=== PATIENT | female | born 1990 | race African-American/Black ===

== ENCOUNTER 2018-09-17 08:59 | Emergency (ER) | payer OTHER ==
[~2018-09-17] VITALS: Ht 165.1 cm; Wt 81.0 kg
[2018-09-17] MEDS ORDERED: ONDANSETRON HCL 4MG/2ML INJ IV STA (10:15)
[2018-09-17] MEDS ORDERED: SODIUM CHLORIDE 0.9% 1,000 ML IV ONE (10:15)
[2018-09-17] MEDS ORDERED: FAMOTIDINE 20MG/2ML VIAL IV STA (10:15)
[2018-09-17] MEDS ORDERED: MAGNESIUM/ALUMINUM HYDROXIDE/SIMETHICONE 30ML UDC PO STA (10:15)
[2018-09-17 11:11] LABS: HEMATOCRIT. 38.1 % (36.0-48.0); HEMOGLOBIN. 12.2 g/dL (12.0-16.0); MEAN CORPUSCULAR HEMOGLOBIN 26.6 pg (28.0-32.0); MEAN CORPUSCULAR VOLUME 83.5 fL (81.0-99.0); MEAN PLATELET VOLUME 8.9 fl (7.4-10.4); PLATELET 324 x1000/uL (130-400); RED BLOOD CELL COUNT 4.57 mill/uL (4.2-5.4)
[2018-09-17 11:18] LABS: PROTHROMBIN TIME 10.3 sec (9.6-11.0)
[2018-09-17 11:22] LABS: CHLORIDE 105 mEq/L (98-107)
[2018-09-17 11:26] LABS: PLATELET ESTIMATE NORMAL
[2018-09-17] MEDS ORDERED: DIPHENHYDRAMINE 50MG/ML VIAL IV ONE (12:00)
[2018-09-17 12:45] LABS: CLARITY URINE CLEAR (CLEAR); COLOR URINE YELLOW (YELLOW); KETONES URINE 1+ (NEGATIVE); LEUKOCYTE ESTERASE URINE NEGATIVE (NEGATIVE); NITRITE URINE NEGATIVE (NEGATIVE); OCCULT BLOOD URINE NEGATIVE (NEGATIVE); PH URINE 5.5 (4.5-8.0); PROTEIN URINE NEGATIVE (NEGATIVE); UROBILINOGEN URINE 0.2 E.U./dL (0.2-1.0)
[2018-09-17 14:29] VITALS: BP 134/94
== END 2018-09-17 14:32 | disposition home or self-care (01) ==
LOC: ER 08:59
DX: R11.2 Nausea with vomiting, unspecified (principal); R19.7 Diarrhea, unspecified; E11.65 Type 2 diabetes mellitus with hyperglycemia; R21 Rash and other nonspecific skin eruption; D72.829 Elevated white blood cell count, unspecified
CPT/HCPCS: 36415; 80053; 81003; 83690; 85025; 85610; 96361; 96374; 96375; 99283; J1200; J2405; J3490; J7030; Z7610

== ENCOUNTER 2019-02-14 21:26 | Emergency (ER) | payer MEDICAID, OTHER ==
[~2019-02-14] VITALS: Ht 160 cm; Wt 73.0 kg
[2019-02-14] MEDS ORDERED: SODIUM CHLORIDE 0.9% 1000ML BAG (SEPSIS BOLUS) IV ONE (22:30)
[2019-02-14] MEDS ORDERED: LEVOFLOXACIN 750MG PREMIX 150 ML IV ONE (22:30)
[2019-02-14 23:21] LABS: HEMATOCRIT. 34.2 % (36.0-48.0); HEMOGLOBIN. 11.2 g/dL (12.0-16.0); MEAN CORPUSCULAR HEMOGLOBIN 27.1 pg (28.0-32.0); MEAN CORPUSCULAR VOLUME 82.6 fL (81.0-99.0); MEAN PLATELET VOLUME 8.4 fl (7.4-10.4); PLATELET 254 x1000/uL (130-400); RED BLOOD CELL COUNT 4.15 mill/uL (4.2-5.4); RED CELL DISTRIBUTION WIDTH 15.5 % (11.6-14.6)
[2019-02-14 23:27] LABS: CHLORIDE 102 mEq/L (98-107)
[2019-02-14 23:53] LABS: CLARITY URINE CLOUDY (CLEAR); COLOR URINE YELLOW (YELLOW); KETONES URINE TRACE (NEGATIVE); LEUKOCYTE ESTERASE URINE 2+ (NEGATIVE); NITRITE URINE POSITIVE (NEGATIVE); OCCULT BLOOD URINE 1+ (NEGATIVE); PH URINE 5.5 (4.5-8.0); PROTEIN URINE 2+ (NEGATIVE); SPECIFIC GRAVITY URINE 1.024 (1.005-1.030); UROBILINOGEN URINE 0.2 E.U./dL (0.2-1.0)
[2019-02-15 04:14] VITALS: BP 118/75
[2019-02-15 05:19] LABS: PLATELET ESTIMATE NORMAL
== END 2019-02-15 04:21 | disposition short-term general hospital (02) ==
LOC: ER 21:26
DX: R65.21 Severe sepsis with septic shock (principal); N39.0 Urinary tract infection, site not specified; J11.1 Influenza due to unidentified influenza virus with other respiratory manifestations; I95.9 Hypotension, unspecified; E11.9 Type 2 diabetes mellitus without complications
CPT/HCPCS: 36415; 71045; 80053; 81003; 81025; 82962; 83605; 84145; 84484; 85025; 87040; 87077; 87086; 87186; 87804; 93005; 96365; 96366; 99291; J1956; J7030; 84703

== ENCOUNTER 2023-10-27 23:28 | Emergency (ER) | payer MEDICAID, OTHER ==
[~2023-10-27] VITALS: Ht 160 cm; Wt 66.0 kg
[2023-10-27 23:31] VITALS: O2SAT 97
[2023-10-28 00:03] LABS: HEMOGLOBIN. 10.4 g/dL (12.0-16.0); MEAN CORPUSCULAR HGB CONC 31.6 g/dL (31.0-37.0); MEAN CORPUSCULAR VOLUME 82.3 fL (81.0-99.0); MEAN PLATELET VOLUME 7.9 fl (7.4-10.4); PLATELET 330 x1000/uL (130-400); RED BLOOD CELL COUNT 4.01 mill/uL (4.2-5.4); RED CELL DISTRIBUTION WIDTH 16.9 % (11.6-14.6); WHITE BLOOD COUNT 6.5 x1000/uL (4.5-11.0)
[2023-10-28 00:07] LABS: CHLORIDE 99 mEq/L (98-107); DIFFERENTIAL COMMENT 1; POTASSIUM 3.5 mEq/L (3.5-5.1); SODIUM 133 mEq/L (136-145)
[2023-10-28 00:08] LABS: CARBON DIOXIDE 24 mEq/L (21-32)
[2023-10-28 00:11] LABS: PROTHROMBIN TIME 10.7 sec (9.6-11.0)
[2023-10-28 00:13] LABS: GLUCOSE 373 mg/dL (70-105); UREA NITROGEN BLOOD 14 mg/dL (9-23)
[2023-10-28 00:15] LABS: ALANINE AMINOTRANSFERASE 17 IU/L (10-49); ALBUMIN 3.7 g/dL (3.2-4.8); ASPARTATE AMINOTRANSFERASE 23 IU/L (<34)
[2023-10-28 00:16] LABS: BILIRUBIN TOTAL 0.3 mg/dL (0.1-1.0); PROTEIN TOTAL 7.2 g/dL (6.0-8.3)
[2023-10-28 00:22] LABS: BILIRUBIN DIRECT < 0.1 mg/dL (<=3.0); ETHANOL BLOOD < 10 mg/dL (<10)
[2023-10-28 00:23] LABS: HCG SCREEN NEGATIVE
[2023-10-28] MEDS: SODIUM CHLORIDE 0.9% 1000ML BAG (SEPSIS BOLUS) IV ONE (00:23)
[2023-10-28] MEDS: ACETAMINOPHEN 1000MG/100ML 100 ML IV ONE (00:23)
[2023-10-28 03:39] LABS: PLATELET ESTIMATE NORMAL
[2023-10-28 05:06] LABS: CLARITY URINE CLEAR (CLEAR); COLOR URINE YELLOW (YELLOW); GLUCOSE URINE 3+ (NEGATIVE); KETONES URINE 2+ (NEGATIVE); LEUKOCYTE ESTERASE URINE NEGATIVE (NEGATIVE); NITRITE URINE NEGATIVE (NEGATIVE); OCCULT BLOOD URINE 1+ (NEGATIVE); PROTEIN URINE 4+ (NEGATIVE); SPECIFIC GRAVITY URINE 1.027 (1.005-1.030); UROBILINOGEN URINE 0.2 E.U./dL (0.2-1.0)
[2023-10-28] MEDS: INSULIN REGULAR (HUMULIN R) 1000UNITS/10ML VIAL IV NR (05:06)
[2023-10-28] MEDS ORDERED: ALBU6.7H15 INH (05:12)
[2023-10-28] MEDS ORDERED: IBUP-2029 MT (05:12)
[2023-10-28 05:14] VITALS: BP 145/66; PULSE 78; RESP 19; TEMP 36.55848; O2SAT 100
[2023-10-28 06:27] LABS: SQUAMOUS EPITHELIAL CELL URINE FEW /lpf (RARE/1+)
[2023-10-28 06:28] LABS: RBC URINE 0-2 /hpf (0-2); WBC URINE 0-2 /hpf (0-2)
[2023-10-28 06:29] LABS: BACTERIA URINE NONE SEEN
== END 2023-10-28 05:12 | disposition home or self-care (01) ==
LOC: ER 23:28
DX: U07.1 COVID-19 (principal); E10.65 Type 1 diabetes mellitus with hyperglycemia
CPT/HCPCS: 80076; 80048; 80320; 84703; 83605; 83690; 85025; 85610; 87040; 36415; 84145; 71045; 93005; 99285; 81003; 87086; 87804 ×2; 96365; 87426; J7030; G0480; J0131

== ENCOUNTER 2024-10-12 12:10 | Emergency (ER) | payer MEDICAID, OTHER ==
[~2024-10-12] VITALS: Ht 167.6 cm; Wt 73.0 kg
[~2024-10-12 12:10] MED LIST: ALBU6.7H15 INH; IBUP-2029 MT
[2024-10-12 12:13] VITALS: O2SAT 96
[2024-10-12] MEDS: IBUPROFEN 600MG TABLET PO ONE (12:52)
[2024-10-12] MEDS: MORPHINE SULFATE 4 MG/ML INJ (FOR IV/IM USE) IM ONE (13:26)
[2024-10-12 15:31] LABS: HEMATOCRIT. 24.4 % (36.0-48.0); HEMOGLOBIN. 7.9 g/dL (12.0-16.0); MEAN PLATELET VOLUME 7.6 fl (7.4-10.4); PLATELET 286 x1000/uL (130-400); RED BLOOD CELL COUNT 3.06 mill/uL (4.2-5.4); RED CELL DISTRIBUTION WIDTH 17.7 % (11.6-14.6)
[2024-10-12 15:39] LABS: HCG SCREEN POSITIVE
[2024-10-12 15:44] LABS: UREA NITROGEN BLOOD 18 mg/dL (9-23)
[2024-10-12 15:45] LABS: ASPARTATE AMINOTRANSFERASE 22 IU/L (<34)
[2024-10-12 15:46] LABS: BILIRUBIN DIRECT < 0.1 mg/dL (<=3.0); BILIRUBIN TOTAL 0.3 mg/dL (0.1-1.0); INR 1.0; PROTEIN TOTAL 6.0 g/dL (6.0-8.3)
[2024-10-12 15:48] LABS: CREATININE 1.4 mg/dL (0.6-1.0)
[2024-10-12] MEDS: POTASSIUM CHLORIDE 20MEQ TABLET SR PO NR (16:26)
[2024-10-12] MEDS: ONDANSETRON 4MG ODT PO ONE (16:43)
[2024-10-12] MEDS: ACETAMINOPHEN 325MG TABLET PO ONE (16:43)
[2024-10-12] MEDS: LABETALOL 5MG/ML 4ML INJ IV ONE (16:56)
[2024-10-12 17:36] LABS: EOSINOPHILS % MANUAL 3.0 % (0.0-5.0); LYMPHOCYTES % MANUAL 9.0 % (20.0-60.0); MONOCYTES % MANUAL 6.0 % (2.0-8.0); NEUTROPHILS % MANUAL 82.0 % (45.0-75.0); PLATELET ESTIMATE NORMAL
[2024-10-12 19:25] LABS: PLATELET 284 x1000/uL (130-400); RED BLOOD CELL COUNT 2.99 mill/uL (4.2-5.4); RED CELL DISTRIBUTION WIDTH 17.8 % (11.6-14.6)
[2024-10-12] MEDS ORDERED: MORPHINE SULFATE 2 MG/ML INJ (NOT FOR IM USE) IV ONE (19:45)
[2024-10-12] MEDS: KETOROLAC 15MG/ML VIAL IV ONE (21:22)
[2024-10-12] MEDS: IBUPROFEN 600MG TABLET PO NR (21:28)
[2024-10-12] MEDS: CLONIDINE 0.1MG TABLET PO NR (21:30)
[2024-10-12] MEDS: MORPHINE SULFATE 2 MG/ML INJ (NOT FOR IM USE) IV NR (21:30)
[2024-10-12 23:46] VITALS: BP 162/83; PULSE 90; RESP 22; TEMP 36.9; O2SAT 97
== END 2024-10-13 00:05 | disposition short-term general hospital (02) ==
LOC: ER 12:10 → CMPBEDREQ 10-14 08:30
DX: O03.9 Complete or unspecified spontaneous abortion without complication (principal); D50.9 Iron deficiency anemia, unspecified; I10 Essential (primary) hypertension; O24.119 Pre-existing type 2 diabetes mellitus, in pregnancy, unspecified trimester; Z79.899 Other long term (current) drug therapy
CPT/HCPCS: 80076; 80048; 84703; 85027; 85025; 85610; 85730; 86850; 86900; 86901; 36415; 76801; 76817; 96372; 96374; 96375; 99291; J1885; J3490; J2270 ×2; Z7610 ×4; A4606

== ENCOUNTER 2024-10-28 06:20 | Emergency (ER) | payer MEDICAID ==
[~2024-10-28] VITALS: Ht 160 cm; Wt 61.0 kg
[2024-10-28 06:21] VITALS: O2SAT 99
[2024-10-28 07:07] LABS: BASOPHILS % 1.0 % (0.0-2.0); EOSINOPHILS % 0.5 % (0.0-5.0); HEMATOCRIT. 27.6 % (36.0-48.0); HEMOGLOBIN. 9.0 g/dL (12.0-16.0); LYMPHOCYTES % 8.1 % (20.0-50.0); MEAN PLATELET VOLUME 7.8 fl (7.4-10.4); MONOCYTES % 6.5 % (2.0-8.0); NEUTROPHILS % 83.9 % (40.0-76.0); PLATELET 341 x1000/uL (130-400); RED BLOOD CELL COUNT 3.46 mill/uL (4.2-5.4); RED CELL DISTRIBUTION WIDTH 17.4 % (11.6-14.6)
[2024-10-28] MEDS: SODIUM CHLORIDE 0.9% 1,000 ML IV ONE ×2 (07:12→12:12)
[2024-10-28 07:27] LABS: CREATININE 1.7 mg/dL (0.6-1.0); UREA NITROGEN BLOOD 18.0 mg/dL (9-23)
[2024-10-28] MEDS: ONDANSETRON HCL 4MG/2ML INJ IV ONE (07:35)
[2024-10-28] MEDS: MORPHINE SULFATE 4 MG/ML INJ (FOR IV/IM USE) IV ONE (07:35)
[2024-10-28 09:47] LABS: BG BASE EXCESS -1.1 mmol/L (-2.0-3.0); BG CARBOXYHEMOGLOBIN 0.3 % (0.5-1.5); BG DEOXYHEMOGLOBIN 2.0 % (0.0-5.0); BG FRACTION INSPIRED OXYGEN 21; BG HCO3 ACT 23.1 mmol/L (21.0-28.0); BG METHEMOGLOBIN 0.3 % (0.5-1.5); BG OXYGEN SATURATION 98.0 % (94.0-98.0); BG OXYHEMOGLOBIN 97.4 % (94.0-98.0); BG PCO2 36.5 mmHg (32.0-45.0); BG PH 7.420 (7.350-7.450); BG PO2 106.2 mmHg (83.0-108.0); BG SAMPLE SITE RIGHT RADIAL; BG TOTAL HEMOGLOBIN 9.3 g/dL (12.0-16.0); BG VENT MODE ROOM AIR
[2024-10-28] MEDS: INSULIN REGULAR (HUMULIN R) 1000UNITS/10ML VIAL IV ONE (11:35)
[2024-10-28] MEDS: HYDRALAZINE 20MG/ML VIAL IV ONE (12:42)
[2024-10-28 12:49] VITALS: BP 173/82; PULSE 101; RESP 18; TEMP 36.5; O2SAT 100
== END 2024-10-28 11:40 | disposition short-term general hospital (02) ==
LOC: ER 06:20 → CANBEDREQ 10:58 → ER 11:40
DX: E11.65 Type 2 diabetes mellitus with hyperglycemia (principal); I50.9 Heart failure, unspecified
CPT/HCPCS: 99285; 96374; 96375; 71045; 80048; 82010; 82962; 85025; 36415; 82805; 82375; 36600; J0360; J2405; J2270; J7030; J1815